=== PATIENT | female | born 1950 | race Caucasian/White ===

== ENCOUNTER → 2017-12-04 | Outpatient (CLI) | payer MEDICARE, OTHER ==
[2017-12-04] VITALS (7 sets, daily range): BP systolic 97–143; BP diastolic 51–65
[~2017-12-04] MED LIST: ALLER-EASE180 MG PO; CEFUROXIME250 MG PO; DIGOXIN250 MCG PO; FLECAINIDE ACET50 M1; LISINOPRIL10 MG PO; TOPROL XL100 MG PO; XARELTO20 MG PO
--- NOTE | 2017-12-04 17:12 | H ---
[address] [address] HISTORY AND PHYSICAL Name: GALLO TINEO Room: [facility]#: [id number] Admission: 12/04/17 Attend Phys: Landen Fernandez MD Discharge: Date of : 46 Report #: [id number] THIS REPORT FOR: //name// CC: Carline Fernandez INDICATION: Cardioversion. HISTORY OF PRESENT ILLNESS: The patient is a very pleasant 67-year-old white female with paroxysmal atrial fibrillation and hypertension. The patient had recurrent atrial fibrillation and has been placed on antiarrhythmic medications and Xarelto. She presented today for elective cardioversion. At this time, she is without cardiac complaint. She is not having chest pain, tightness or pressure. She denies any significant dyspnea or orthopnea. PAST MEDICAL HISTORY: 1. Paroxysmal atrial fibrillation. 2. Anxiety. 3. Atrial fibrillation. 4. Depression. 5. Hypertension. PAST SURGICAL HISTORY: 1. Cholecystectomy. 2. Hysterectomy with oophorectomy. FAMILY HISTORY: Noncontributory. SOCIAL HISTORY: The patient is a lifelong nonsmoker. She does not drink alcohol. ALLERGIES: PEACH. CURRENT MEDICATIONS: Cefuroxime, digoxin 250 mcg daily, lisinopril 10 mg daily, metoprolol XL 100 mg daily, Xarelto 20 mg daily, and flecainide 100 mg b.i.d. REVIEW OF SYSTEMS: A 14-point review of systems is unremarkable. PHYSICAL EXAMINATION: VITAL SIGNS: Blood pressure 110/74, heart rate is in the 80s and irregular. GENERAL: This is a pleasant elderly female, in no distress. Mood and affect appropriate. HEENT: Extraocular muscles are intact. Mucous membranes are moist. NECK: Shows no jugular venous distention. There are no carotid bruits. CHEST: Reveals clear lung whitaker without wheezes, rales or rhonchi. CARDIOVASCULAR: Reveals irregularly irregular rhythm [place] [address] HISTORY AND PHYSICAL Name: GALLO TINEO Room: [facility]#: [id number] Admission: 12/04/17 Attend Phys: Landen Fernandez MD Discharge: Date of : 46 Report #: [id number] ABDOMEN: Reveals normal bowel sounds. The abdomen is soft and nontender. EXTREMITIES: Shows no edema. Peripheral pulses are 2+ and easily palpable. LABORATORY DATA: Tele shows atrial fibrillation with a controlled ventricular response rate. IMPRESSION: 1. Persistent atrial fibrillation. 2. Hypertension. PLAN: 1. The patient is being admitted for elective DC cardioversion. 2. Blood pressure adequately controlled on current regimen. <ELECTRONICALLY SIGNED> By: Landen Fernandez MD, [facility] 12/04/17 1712 1407 1431Michael Leonard Fernandez MD, FACC /nt
--- NOTE | 2017-12-08 08:34 | CARD ---
[address] [address] CARDIAC CATH REPORT Name: GALLO TINEO Room: [facility].#: [id number] Admission: 12/04/17 Attend Phys: Landen Fernandez MD Discharge: Date of : 46 Report #: [id number] THIS REPORT FOR: //name// CC: Carline Fernandez PROCEDURE: DC cardioversion. INDICATION: Persistent atrial fibrillation. PROCEDURE DESCRIPTION: After informed consent was obtained, the patient was brought to the cardiac holding area. The patient was given intravenous Versed and fentanyl for conscious sedation. Once the patient was adequately sedated, she was cardioverted with a single biphasic shock of 300 joules to normal sinus rhythm. The patient tolerated the procedure well without complication. IMPRESSION: 1. Persistent atrial fibrillation. 2. Successful direct current cardioversion to normal sinus rhythm. <ELECTRONICALLY SIGNED> By: Landen Fernandez MD, FACC 12/08/17 0834 1407 2159[place] Leonard Fernandez MD, FACC /nt
== END | disposition home or self-care (01) ==
LOC: M.CL 10:00
DX: I48.1 Persistent atrial fibrillation (principal); I10 Essential (primary) hypertension; I48.91 Unspecified atrial fibrillation; F41.8 Other specified anxiety disorders; F32.89 Other specified depressive episodes; Z90.49 Acquired absence of other specified parts of digestive tract; Z90.710 Acquired absence of both cervix and uterus; Z98.890 Other specified postprocedural states; Z79.899 Other long term (current) drug therapy

== ENCOUNTER → 2018-01-09 | Outpatient (CLI) | payer MEDICARE, OTHER ==
[2018-01-09 13:02] VITALS: BP 114/69
[2018-01-09 13:33] VITALS: BP 108/78
[2018-01-09 13:38] VITALS: BP 125/67
[2018-01-09 13:40] VITALS: BP 112/91
[2018-01-09 13:45] VITALS: BP 115/81
[2018-01-09 13:58] VITALS: BP 115/82
--- NOTE | 2018-01-09 19:55 | TEE ---
[place] [address] TRANSESOPHAGEAL ECHOCARDIOGRAM Name: GALLO TINEO Room: [facility]#: [id number] Admission: 01/09/18 Attend Phys: Landen Fernandez, Discharge: Date of : 46 Date of Service: 01/09/181954 Report #: [id number] THIS REPORT FOR: //name// APPROVED REPORT Study performed: 01/09/2018 13:35:14 EXAM: Transesophageal Echocardiogram Patient Location: Out-Patient Status: routine BSA: 1.97 HR: 82 bpm BP: 125/67 mmHg Rhythm: Atrial Fibrillation Other Information Study Quality: Good Indications Atrial Fibrillation Echo Enhancing Agent Indication: Rule out Shunt Agent(s) / Amount(s) Used: Agitated Saline 10 cc Procedure After obtaining informed consent, patient underwent transesophageal echo in the [facility]. Type of Sedation : Conscious Sedation Sedation was administered by Rachel Kaufman RN. Sedation start time: 1333 Case end Time: 1346 Sedation was achieved intravenously with: Versed (4) Fentanyl (75) Transesophageal probe was inserted and advanced into esophagus without difficulty by Landen Fernandez MD, FACC. Echo enhancement indication: R/O Septal defect. Echo enhancement agent administered: Agitated Saline The LISA was performed without complications. Throughout the procedure, the blood pressure, pulse oximetry, cardiac rhythm, and rate were monitored. The patient tolerated the procedure without adverse effects. Recovery from conscious sedation was uneventful and vital signs were stable. Left Ventricle [address] [address] TRANSESOPHAGEAL ECHOCARDIOGRAM Name: GALLO TINEO Room: [facility].#: [id number] Admission: 01/09/18 Attend Phys: Landen Fernandez, Discharge: Date of : 46 Date of Service: 01/09/18 1955 Report #: [id number] The left ventricle is normal size. There is normal LV segmental wall motion. There is normal left ventricular wall thickness. Left ventricular systolic function is normal. LVEF is 55-60%. Right Ventricle The right ventricle is normal size. The right ventricular systolic function is normal. Atria No thrombus is visualized in the left atrium or appendage. Left atrium is moderately dilated. Interatrial septum is intact without evidence of ASD or PFO. The right atrium size is normal. Aortic Valve The aortic valve is normal in structure. No aortic regurgitation is present. There is no aortic valvular stenosis. Mitral Valve The mitral valve is normal in structure. Mild mitral regurgitation. No evidence of mitral valve stenosis. Tricuspid Valve The tricuspid valve is normal in structure. There is no tricuspid valve regurgitation noted. Pulmonic Valve The pulmonary valve is normal in structure. There is no pulmonic valvular regurgitation. Great Vessels The aortic root is normal in size. Pericardium There is no pericardial effusion. <Conclusion> The left ventricle is normal size. There is normal left ventricular wall thickness. Left ventricular systolic function is normal. LVEF is 55-60%. Interatrial septum is intact without evidence [place] [address] TRANSESOPHAGEAL ECHOCARDIOGRAM Name: GALLO TINEO JO Room: [facility]#: [id number] Admission: 01/09/18 Attend Phys: Landen Fernandez, Discharge: Date of : 46 Date of Service: 01/09/181954 Report #: [id number] No thrombus is visualized in the left atrium or appendage. Left atrium is moderately dilated. <ELECTRONICALLY SIGNED> By: Landen Fernandez MD, FACC 01/09/181954 54 54 Landen Fernandez MD, FACC /INF
== END | disposition home or self-care (01) ==
LOC: M.CL 11:56
DX: I51.7 Cardiomegaly (principal); Z79.899 Other long term (current) drug therapy

== ENCOUNTER → 2018-03-11 | Outpatient (CLI) | payer MEDICARE, OTHER | LOC: M.RAD 08:52 | DX: Z12.31 Encounter for screening mammogram for malignant neoplasm of breast (principal); I48.0 Paroxysmal atrial fibrillation; I10 Essential (primary) hypertension ==

== ENCOUNTER → 2018-05-12 | Outpatient (CLI) | payer MEDICARE, OTHER ==
[2018-05-12 09:48] LABS: CREATININE 0.8 mg/dL (0.6-1.3); POTASSIUM 4.4 mmol/L (3.5-5.1)
== END ==
LOC: M.LAB 09:19
PROVIDERS: Nurse Practitioner Family
DX: I10 Essential (primary) hypertension (principal); I48.91 Unspecified atrial fibrillation

== ENCOUNTER → 2018-05-20 | Outpatient (CLI) | payer MEDICARE, OTHER | LOC: M.RAD 13:59 | DX: M85.89 Other specified disorders of bone density and structure, multiple sites (principal); I10 Essential (primary) hypertension; I48.0 Paroxysmal atrial fibrillation; Z78.0 Asymptomatic menopausal state ==

== ENCOUNTER → 2019-03-30 | Outpatient (CLI) | payer MEDICARE, OTHER | LOC: M.RAD 11:00 | DX: Z12.31 Encounter for screening mammogram for malignant neoplasm of breast (principal) ==

== ENCOUNTER → 2020-04-24 | Outpatient (CLI) | payer MEDICARE, OTHER | LOC: M.RAD 10:14 | DX: Z12.31 Encounter for screening mammogram for malignant neoplasm of breast (principal) ==

== ENCOUNTER → 2021-07-04 | Outpatient (CLI) | payer MEDICARE, OTHER | LOC: M.RAD 09:18 | PROVIDERS: ATTEND Family Medicine | DX: Z12.31 Encounter for screening mammogram for malignant neoplasm of breast (principal); N64.89 Other specified disorders of breast ==

== ENCOUNTER → 2021-11-29 | Outpatient (CLI) | payer MEDICARE, OTHER ==
[2021-11-29] VITALS (10 sets, daily range): BP systolic 74–100; BP diastolic 38–64
--- NOTE | 2021-11-29 17:29 | CARD ---
[address] [address] CARDIAC CATH REPORT Name: GALLO TINEO Room: [facility]..#: [id number] Admission: 11/29/21 Attend Phys: Landen Fernandez MD Discharge: Date of : 46 Report #: [id number] THIS REPORT FOR: cc: Carline Robertson Linda J. DO Liston, Michael J. MD [facility] ~ cc: Carline Robertson DO, Luis F. Couchonnal, MD DATE OF SERVICE: 11/29/2021 CARDIAC PROCEDURE PROCEDURE: DC cardioversion. INDICATION: Persistent atrial arrhythmias. DESCRIPTION OF PROCEDURE: After informed consent was obtained, the patient was brought to the cardiac holding area. The patient was found to be in atrial flutter with controlled ventricular response rate. The patient was given 3 mg of Versed and 75 mg of intravenous fentanyl for conscious sedation. Once the patient was adequately sedated, she was cardioverted from atrial flutter to normal sinus rhythm with a single biphasic shock of 300 joules. The patient tolerated the procedure well and without complication. IMPRESSION: 1. Persistent atrial flutter. 2. Successful direct current cardioversion to normal sinus rhythm. <ELECTRONICALLY SIGNED> By: Landen Fernandez MD, FAC 11/29/21 1729 0901 0914[facility] Diego[facility]ust[facility] Fernandez MD, LEROYC /nt
== END | disposition home or self-care (01) ==
LOC: M.CL 09:15
PROVIDERS: ATTEND Internal Medicine Cardiovascular Disease
DX: I49.8 Other specified cardiac arrhythmias (principal); I48.92 Unspecified atrial flutter; Z79.899 Other long term (current) drug therapy